=== PATIENT | female | born 1980 | race Hispanic/Latino ===

== ENCOUNTER 2023-12-31 09:30 | Inpatient (IN) | payer SELFPAY ==
[~2023-12-31] VITALS: Ht 167.6 cm; Wt 171.4 kg
[2023-12-31] VITALS (16 sets, daily range): BP systolic 105–124; BP diastolic 60–68; PULSE 75–109; RESP 18–20; O2SAT 100
[2023-12-31] MEDS: 0.9%NACL 1000ML 1,000 ML IV ONE (10:21)
[2023-12-31] MEDS: ONDANSETRON 4MG INJ IVP ONE (10:21)
[2023-12-31] MEDS: MORPHINE 2 MG SYG IVP ONE (10:21)
[2023-12-31] MEDS: KETOROLAC 15MG/ML VIAL (15MG/ML) IV ONE (10:21)
[2023-12-31] MEDS: ACETAMINOPHEN 500 MG TABLET PO ONE (10:22)
[2023-12-31 11:29] LABS: BASOPHILS # (AUTO) 0.02 K/uL (0.00-0.20); BASOPHILS % (AUTO) 0.5 % (0.0-5.0); EOSINOPHILS # (AUTO) 0.07 K/uL (0.00-0.70); EOSINOPHILS % (AUTO) 1.6 % (0.0-8.0); HEMATOCRIT 31.5 % (36-48); IMMATURE GRANULOCYTE ABSOLUTE 0.01 K/uL (0-1); LYMPHOCYTES # (AUTO) 0.6 K/uL (1.0-4.8); LYMPHOCYTES % (AUTO) 13.8 % (21.0-51.0); MEAN CORPUSCULAR HEMOGLOBIN 27.5 pg (27.0-33.0); MEAN CORPUSCULAR HGB CONC 33.3 g/dL (32.0-36.0); MEAN CORPUSCULAR VOLUME 82.5 fL (79-99); MONOCYTES % (AUTO) 0.9 % (3.0-13.0); NEUTROPHILS # (AUTO) 3.6 K/uL (1.8-7.7); PLATELET COUNT (AUTO) 117 K/uL (130-400); RED BLOOD CELL COUNT(AUTO) 3.82 MIL/uL (4.00-5.50); RED CELL DISTRIBUTION WIDTH 13.6 % (11.0-15.5); WHITE BLOOD COUNT (AUTO) 4.3 K/uL (4.8-10.8)
[2023-12-31] MEDS: [UNRECOGNIZED DRUG - OTHER] IV ONE (12:46)
[2023-12-31 12:47] LABS: APPEARANCE,URINE CLOUDY (CLEAR); BILIRUBIN,URINE NEGATIVE (NEGATIVE); COLOR,URINE LIGHT-BROWN (YELLOW); GLUCOSE, URINE (UA) NEGATIVE (NEGATIVE); KETONES,URINE NEGATIVE (NEGATIVE); LEUKOCYTE ESTERASE ,URINE 500 Leu/uL (NEGATIVE); NITRATE,URINE NEGATIVE (NEGATIVE); OCCULT BLOOD,URINE LARGE (NEGATIVE); PROTEIN,URINE 50 mg/dL (NEGATIVE); UROBILINOGEN,URINE 0.2 mg/dL (0.2-1.0)
[2023-12-31 12:51] LABS: ADD UA MICROSCOPIC YES
[2023-12-31 12:54] LABS: BACTERIA,URINE FEW /HPF (None Seen); MUCUS,URINE RARE LPF (None Seen); RBC,URINE TNTC /HPF (0-1); SQUAMOUS EPITHELIAL CELL,UR MANY /HPF (0-2); WBC,URINE 51-100 /HPF (0-1)
[2023-12-31 13:02] LABS: BILIRUBIN,TOTAL 0.7 mg/dL (0.2-1.0); CREATININE 0.9 mg/dL (0.5-1.0); POTASSIUM 4.5 mmol/L (3.5-5.1); TOTAL PROTEIN, SERUM 7.7 g/dL (6.0-8.3)
[2023-12-31 13:33] LABS: ALBUMIN 3.2 g/dL (3.5-5.0)
[2023-12-31] MEDS: LEVOFLOXACIN 750 MG/D5W 150ML BAG IV ONE (14:10)
[2023-12-31] MEDS ORDERED: MORPHINE 2 MG SYG IVP PRN (14:30)
[2023-12-31] MEDS ORDERED: COMPOUND IV MISC 1 EACH IVSOLN MISC PRN (14:30)
[2023-12-31] MEDS ORDERED: KETOROLAC 15MG/ML VIAL (15MG/ML) IM PRN (14:30)
[2023-12-31] MEDS ORDERED: IPRATROPIUM/ALBUTEROL SULFATE 3 ML SOLUTION IH PRN (14:30)
[2023-12-31 15:11] LABS: INR 1.06 (0.85-1.15); PROTHROMBIN TIME 11.4 SEC (9.6-11.6)
[2023-12-31 15:13] LABS: PARTIAL THROMBOPLASTIN TIME 26.1 SEC (26.3-35.5)
[2023-12-31 15:34] LABS: MAGNESIUM 1.1 mg/dL (1.80-2.40)
[2023-12-31 16:09] LABS: HEMOGLOBIN A1C 6.2 % (4.0-6.0)
[2023-12-31] MEDS ORDERED: LIDOCAINE HCL MPF 1% 5ML VIAL ONE (16:24)
[2023-12-31] MEDS ORDERED: PROPOFOL 10 MG/ML 20ML VIAL IV ONE (16:25)
[2023-12-31] MEDS ORDERED: MIDAZOLAM HCL 1 MG/ML 2ML VIAL ONE (16:25)
[2023-12-31] MEDS ORDERED: SUCCINYLCHOLINE CHLORIDE 20 MG/ML 10 ML VIAL ONE (16:25)
[2023-12-31] MEDS ORDERED: FENTANYL CITRATE PF 50 MCG/1 ML 2ML VIAL ONE (16:26)
[2023-12-31] MEDS ORDERED: ROCURONIUM BROMIDE 10MG/1ML 5ML VL ONE (16:26)
[2023-12-31] MEDS ORDERED: ONDANSETRON 4MG INJ ONE (17:26)
[2023-12-31] MEDS ORDERED: KETOROLAC 30MG VIAL (30MG/ML) ONE (17:26)
[2023-12-31] MEDS ORDERED: DEXAMETHASONE SOD PHOSPHATE 10MG/ML 1ML VIAL ONE (17:26)
[2023-12-31] MEDS: ONDANSETRON 4MG INJ ONE (18:08)
[2023-12-31] MEDS: MEPERIDINE-PF 25 MG/ML SYG ONE (18:09)
[2023-12-31] MEDS: FAMOTIDINE 20MG VIAL IV SCH (19:08)
[2023-12-31] MEDS: 0.9%NACL 1000ML 1,000 ML IV SCH (19:08)
[2023-12-31] MEDS: MEROPENEM 1 GM in 0.9%NACL 100ML 100 ML IVPB SCH (19:09)
[2023-12-31] MEDS: SUGAMMADEX SODIUM 200 MG/2 ML VIAL IV ONE (19:09)
[2023-12-31] MEDS: KETOROLAC 15MG/ML VIAL (15MG/ML) IV PRN (20:41)
[2024-01-01] VITALS (9 sets, daily range): BP systolic 110–137; BP diastolic 58–81; PULSE 76–100; RESP 18–20; O2SAT 96–100
[2024-01-01] MEDS: ACETAMINOPHEN 500 MG TABLET PO PRN (00:57)
[2024-01-01 03:46] LABS: BASOPHILS # (AUTO) 0.03 K/uL (0.00-0.20); BASOPHILS % (AUTO) 0.2 % (0.0-5.0); HEMATOCRIT 34.1 % (36-48); IMMATURE GRANULOCYTE ABSOLUTE 0.07 K/uL (0-1); LYMPHOCYTES # (AUTO) 0.6 K/uL (1.0-4.8); LYMPHOCYTES % (AUTO) 4.2 % (21.0-51.0); MEAN CORPUSCULAR HGB CONC 32.6 g/dL (32.0-36.0); MONOCYTES # (AUTO) 0.7 K/uL (0.1-1.0); MONOCYTES % (AUTO) 5.1 % (3.0-13.0); NEUTROPHILS # (AUTO) 12.7 K/uL (1.8-7.7); PLATELET COUNT (AUTO) 169 K/uL (130-400); RED BLOOD CELL COUNT(AUTO) 4.11 MIL/uL (4.00-5.50); RED CELL DISTRIBUTION WIDTH 14.2 % (11.0-15.5); WHITE BLOOD COUNT (AUTO) 14.1 K/uL (4.8-10.8)
[2024-01-01 04:09] LABS: ALBUMIN 2.7 g/dL (3.5-5.0); BILIRUBIN,TOTAL 0.9 mg/dL (0.2-1.0); MAGNESIUM 1.5 mg/dL (1.80-2.40); POTASSIUM 3.6 mmol/L (3.5-5.1); TOTAL PROTEIN, SERUM 6.7 g/dL (6.0-8.3)
[2024-01-01] MEDS: MAGNESIUM 2GM PREMIX 50ML 50 ML IV SCH (04:50)
[2024-01-01] MEDS ORDERED: POTASSIUM CHLORIDE 10% ELIXIR 20 MEQ/15 ML UDCUP PO PRN (05:30)
[2024-01-01] MEDS ORDERED: POTASSIUM CHLORIDE 20MEQ/100ML 100 ML IV PRN (05:30)
[2024-01-01] MEDS: KCL 20 MEQ ERTAB PO PRN (05:44)
[2024-01-01 11:08] LABS: ABG HCO3 21.9 mmol/L (21.0-28.0); ABG OXYGEN SATURATION 96.4 % (95.0-99.0); ABG PCO2 31 mmHg (32-45); ABG PH 7.469 (7.35-7.450); CARBON MONOXIDE 0.6; HHb 3.6; PO2, ARTERIAL BG 79.6 mmHg (83.0-108.0); VENT MODE, BG ROOM AIR (ROOM AIR)
[2024-01-01] MEDS: INSULIN HUMULIN R 100 UNIT/ML 3ML SQ SCH (11:30)
[2024-01-01] MEDS: TAMSULOSIN HCL 0.4 MG CAP.ER.24H PO SCH (17:32)
[2024-01-01] MEDS: ENOXAPARIN SODIUM 40 MG/0.4 ML SYRINGE SQ SCH (21:00)
[2024-01-02] VITALS (8 sets, daily range): BP systolic 115–155; BP diastolic 50–99; PULSE 61–90; RESP 18–20; TEMP 100; O2SAT 98
[2024-01-02 03:31] LABS: BASOPHILS # (AUTO) 0.04 K/uL (0.00-0.20); BASOPHILS % (AUTO) 0.6 % (0.0-5.0); EOSINOPHILS # (AUTO) 0.08 K/uL (0.00-0.70); EOSINOPHILS % (AUTO) 1.2 % (0.0-8.0); HEMATOCRIT 33.5 % (36-48); IMMATURE GRANULOCYTE ABSOLUTE 0.03 K/uL (0-1); LYMPHOCYTES # (AUTO) 1.4 K/uL (1.0-4.8); LYMPHOCYTES % (AUTO) 20.8 % (21.0-51.0); MEAN CORPUSCULAR HEMOGLOBIN 27.5 pg (27.0-33.0); MEAN CORPUSCULAR HGB CONC 33.1 g/dL (32.0-36.0); MEAN CORPUSCULAR VOLUME 82.9 fL (79-99); MONOCYTES # (AUTO) 0.4 K/uL (0.1-1.0); MONOCYTES % (AUTO) 6.4 % (3.0-13.0); NEUTROPHILS # (AUTO) 4.7 K/uL (1.8-7.7); NEUTROPHILS % (AUTO) 70.5 % (40.0-77.0); PLATELET COUNT (AUTO) 145 K/uL (130-400); RED BLOOD CELL COUNT(AUTO) 4.04 MIL/uL (4.00-5.50); RED CELL DISTRIBUTION WIDTH 14.6 % (11.0-15.5); WHITE BLOOD COUNT (AUTO) 6.6 K/uL (4.8-10.8)
[2024-01-02 03:43] LABS: CREATININE 0.8 mg/dL (0.5-1.0); POTASSIUM 3.5 mmol/L (3.5-5.1)
[2024-01-02] MEDS ORDERED: LOSA50TA64 PO (05:26)
[2024-01-02] MEDS ORDERED: METF-890 PO (05:26)
[2024-01-02] MEDS ORDERED: METO25TA3 PO ×2 (05:26→11:24)
[2024-01-02] MEDS: METOPROLOL SUCCINATE 25 MG TAB.SR.24H PO SCH (10:07)
[2024-01-02] MEDS ORDERED: TAMS-1 PO (11:24)
[2024-01-02] MEDS: LEVOFLOXACIN 750 MG TABLET PO SCH (13:26)
[2024-01-02] MEDS ORDERED: LEVO750T68 PO (15:14)
[2024-01-02] MEDS ORDERED: LOSARTAN 50 MG TABLET PO SCH (21:00)
== END 2024-01-02 18:15 | disposition home or self-care (01) | DRG 853 ==
LOC: EDH 09:30 → EDHIP 09:31 → 2DH 19:07
PROVIDERS: ADMIT Internal Medicine; ATTEND Internal Medicine
PROC: 0T778DZ Dilation of Left Ureter with Intraluminal Device, Via Natural or Artificial Opening Endoscopic (ICD-10-PCS; principal; 2023-12-31 16:43)
DX: A41.50 Gram-negative sepsis, unspecified (principal); J96.01 Acute respiratory failure with hypoxia; N13.6 Pyonephrosis; E87.20 Acidosis, unspecified; Z16.24 Resistance to multiple antibiotics; Z68.44 Body mass index [BMI] 60.0-69.9, adult; R65.20 Severe sepsis without septic shock; I10 Essential (primary) hypertension; E66.01 Morbid (severe) obesity due to excess calories; E78.5 Hyperlipidemia, unspecified; E11.9 Type 2 diabetes mellitus without complications; Z87.442 Personal history of urinary calculi; D72.819 Decreased white blood cell count, unspecified; B96.89 Other specified bacterial agents as the cause of diseases classified elsewhere; D69.59 Other secondary thrombocytopenia; G47.33 Obstructive sleep apnea (adult) (pediatric); B96.4 Proteus (mirabilis) (morganii) as the cause of diseases classified elsewhere; Z86.19 Personal history of other infectious and parasitic diseases; Z88.1 Allergy status to other antibiotic agents; Z79.899 Other long term (current) drug therapy
CPT/HCPCS: 36415; 36600; 71045; 74018; 74176; 80048; 80053; 81001; 82435; 82550; 82803; 82947; 82948; 83036; 83605; 83735; 84132; 84145; 84295; 84443; 84484; 84703; 85018; 85025; 85610; 85730; 86140; 86850; 86900; 86901; 87040; 87086; 87186; 93005; 93306; 94664; A4344; C1758; C1769; C2617; G0378; J0330; J1100; J1650; J1885; J1956; J2175; J2185; J2250; J2270; J2405; J2704; J3010; J3475; J3490; J7120; A4222; A4223; A4358; A4663

== ENCOUNTER 2024-01-22 03:01 | Emergency (ER) | payer OTHER ==
[~2024-01-22] VITALS: Ht 167.6 cm; Wt 170.1 kg
[~2024-01-22 03:01] MED LIST: LOSA50TA64 PO; METF-890 PO; METO25TA3 PO; TAMS-1 PO
[2024-01-22 03:33] LABS: BASOPHILS # (AUTO) 0.06 K/uL (0.00-0.20); BASOPHILS % (AUTO) 0.8 % (0.0-5.0); EOSINOPHILS % (AUTO) 4.2 % (0.0-8.0); IMMATURE GRANULOCYTE ABSOLUTE 0.01 K/uL (0-1); LYMPHOCYTES # (AUTO) 2.5 K/uL (1.0-4.8); LYMPHOCYTES % (AUTO) 35.2 % (21.0-51.0); MEAN CORPUSCULAR HEMOGLOBIN 27.8 pg (27.0-33.0); MEAN CORPUSCULAR HGB CONC 33.1 g/dL (32.0-36.0); MEAN CORPUSCULAR VOLUME 83.7 fL (79-99); MONOCYTES # (AUTO) 0.6 K/uL (0.1-1.0); MONOCYTES % (AUTO) 8.9 % (3.0-13.0); NEUTROPHILS # (AUTO) 3.6 K/uL (1.8-7.7); NEUTROPHILS % (AUTO) 50.8 % (40.0-77.0); PLATELET COUNT (AUTO) 226 K/uL (130-400); RED BLOOD CELL COUNT(AUTO) 4.18 MIL/uL (4.00-5.50); RED CELL DISTRIBUTION WIDTH 13.8 % (11.0-15.5); WHITE BLOOD COUNT (AUTO) 7.1 K/uL (4.8-10.8)
[2024-01-22 03:34] LABS: APPEARANCE,URINE CLEAR (CLEAR); BILIRUBIN,URINE NEGATIVE (NEGATIVE); COLOR,URINE LIGHT-YELLOW (YELLOW); GLUCOSE, URINE (UA) NEGATIVE (NEGATIVE); KETONES,URINE NEGATIVE (NEGATIVE); LEUKOCYTE ESTERASE ,URINE 250 Leu/uL (NEGATIVE); NITRATE,URINE NEGATIVE (NEGATIVE); OCCULT BLOOD,URINE LARGE (NEGATIVE); PH,URINE 6.5 (5.0-8.0); PROTEIN,URINE 30 mg/dL (NEGATIVE); UROBILINOGEN,URINE 0.2 mg/dL (0.2-1.0)
[2024-01-22 03:39] LABS: BACTERIA,URINE FEW /HPF (None Seen); MUCUS,URINE RARE LPF (None Seen); RBC,URINE TNTC /HPF (0-1); SQUAMOUS EPITHELIAL CELL,UR FEW /HPF (0-2)
[2024-01-22] MEDS: LACTATED RINGERS 1000ML 1,000 ML IV ONE (03:39)
[2024-01-22 03:42] LABS: CREATININE 0.6 mg/dL (0.5-1.0); POTASSIUM 3.7 mmol/L (3.5-5.1)
[2024-01-22] MEDS: acetaMINOPHEN 325 MG TAB PO ONE (03:44)
[2024-01-22] MEDS ORDERED: FOSF3PAC4 PO (04:02)
[2024-01-22] MEDS: ketOROlac 15MG/ML VIAL (15MG/ML) IV ONE (04:16)
[2024-01-22 04:40] VITALS: BP 129/69; PULSE 82; RESP 18; TEMP 98; O2SAT 96
== END 2024-01-22 04:44 | disposition home or self-care (01) ==
LOC: EDH 03:01
DX: N39.0 Urinary tract infection, site not specified (principal); R10.2 Pelvic and perineal pain; E11.9 Type 2 diabetes mellitus without complications; I10 Essential (primary) hypertension; Z79.84 Long term (current) use of oral hypoglycemic drugs; Z79.899 Other long term (current) drug therapy; Z87.442 Personal history of urinary calculi; Z88.1 Allergy status to other antibiotic agents; Z96.0 Presence of urogenital implants; Z98.51 Tubal ligation status; Z98.890 Other specified postprocedural states
CPT/HCPCS: 99283; 96374; 80048; 84702; 85025; 87086; 81001; 36415; J7120; J1885